=== PATIENT | male | born 2000 | race Caucasian/White ===

== ENCOUNTER 2024-09-23 20:47 | Emergency (ER) | payer OTHER, SELFPAY ==
[2024-09-23 20:52] VITALS: BP 112/81; PULSE 82; RESP 20; TEMP 37; O2SAT 97; BMI 28.1
[2024-09-23] MEDS: Lidocaine HCl 1%/Epi 1:100,000 10 ML VIAL INFILTRATI (23:16)
--- NOTE | 2024-09-23 23:28 | ED_ITS ---
HPI - General Adult General Chief complaint: Skin/Abscess/Foreign Body Stated complaint: Needs stiches, head injury sports Time Seen by Provider: 09/23/24 22:53 Source: patient, RN notes reviewed and old records reviewed Mode of arrival: ambulatory Limitations: no limitations History of Present Illness ED Provider: Essie GILL narrative: 23-year-old male presents for evaluation of a facial laceration Patient was playing rugby. Another player ran into the left side of the patient has had while he was not looking. The patient believes the other individuals no struck him in the left side of the face above his eye He has a small laceration. He reports his tetanus is up-to-date within the last 3 years He has no pain. He denies any loss of consciousness He denies any other injury Related Data Allergies Allergy/AdvReac Type Severity Reaction Status Date / Time No Known Allergies Allergy Verified 09/23/24 20:53 Review of Systems Constitutional: Constitutional: Denies body ache(s), Denies chills, Denies fever(s) and Denies headache(s) Eyes: Eyes: Denies blurry vision ENT: Denies vertigo, Denies dizziness and Denies headache(s) Cardiovascular: Cardiovascular: Denies chest pain and Denies dyspnea Respiratory: Respiratory: Denies cough and Denies dyspnea Gastrointestinal: Gastrointestinal: Denies abdominal pain Integumentary/Breasts: Skin/Breast: Denies rash and Reports wounds Neurologic: Denies vertigo, Denies dizziness and Denies headache(s) PMFSH Social History Social History Advance Directives: No Advance Directives Information Provided: No Physical Exam ED Vital Signs: Vital Signs - 24 hr 09/23/24 20:52 Temperature 98.6 F Pulse Rate 82 Respiratory Rate 20 Blood Pressure 112/81 Pulse Oximetry 97 Oxygen Delivery Method Room Air BMI result Body Mass Index 28.1 Const General: healthy appearing, comfortable, no acute distress, alert and awake Nutritional Appearance: well nourished Orientation/consciousness: patient oriented x3 HENMT Head: Yes No palpable skull fracture present Eyes Eyelids: Yes eyelids normal Conjunctivae: conjunctivae normal Sclerae: sclerae normal Corneas: corneas normal Pupils: Equal, round and reactive pupils present EOM: EOMs intact bilaterally Neck Neck: Yes full ROM Resp Effort & Inspection: normal respiratory effort, able to speak in complete sentences and not labored Cardio Rate: regular rate Rhythm: regular rhythm Skin Other: 4 cm linear laceration above the left lateral eyebrow General skin exam: elasticity normal Neuro General: patient oriented x3 Cranial nerves: Yes Equal, round and reactive pupils present and Yes Bilaterally intact EOM present Cognition (Neuro): normal cognition Extrem Other: Moving all extremities well without any obvious deformities Medications Administered Discontinued Medications Generic Name Dose Route Start Last Admin Trade Name Frenoni PRN Reason Stop Dose Admin Lidocaine/Epinephrine 10 ml 09/23/24 22:54 09/23/24 23:16 Lidocaine Hcl 1%/Epi 1:100,000 10 Ml Vial INFILTRATI 09/23/24 22:55 10 ml ONCE ONE Administration Procedures Laceration Laceration 1: Site: face Side (If applicable): left Size (cm): 3 Description: linear Depth: simple, single layer Local Anesthetic: with epi Amount of anesthesia used (mL): 2 Pre-repair: wound explored, irrigated extensively and deep structures intact Skin layer closed with: other (Prolene) Size (cm): 6-0 Number of sutures: 6 Technique: simple, interrupted Medical Decision Making Medical Decision Making MDM Narrative: For evaluation of a laceration above his left eye. There is no evidence of TBI. No other injuries. See procedure note for state Differential Diagnosis Differential Diagnoses: The differential diagnosis associated with the presentation includes Laceration Skin tear Puncture wound Abrasion Discharge Plan Discharge Clinical Impression: Facial laceration Patient Disposition: Home, Self-Care Instructions: Laceration (ED) Additional Instructions: You had 6 sutures placed. Keep the area clean and dry These can be removed in 5-7 days Return for new or worsening symptoms Print Language: Salvadorean
[2024-09-23 23:50] VITALS: BP 116/58; PULSE 80; RESP 18; TEMP 36.9; O2SAT 98
--- OUTSIDE RECORDS SUMMARY | 2024-09-30 12:13 | XMS_ITS | Summary of Care ---
Author Organization [facility] [place] [employer] Address [address] [place] [address]- Care Team Providers Care Python Django Developer Name Role Phone SARAH JENSEN MD Primary Care Physician Encounter [facility] [id number] Date(s): 03/05/21 - 03/05/21 [facility] [address] [place] [address]- Encounter Diagnosis Pain in left knee(Final) - Iliotibial band syndrome, left leg(Final) - Discharge Disposition: Home Attending Physician: FINA BURGESS MD Referring Physician: SARAH JENSEN MD Allergies, Adverse Reactions, Alerts No Known Allergies
== END 2024-09-23 23:51 | disposition home or self-care (01) ==
PROVIDERS: Emergency Provider Internal Medicine
DX: S01.81XA Laceration without foreign body of other part of head, initial encounter (principal); Y93.63 Activity, rugby; Y92.9 Unspecified place or not applicable; Y99.9 Unspecified external cause status
CPT/HCPCS: 12013; 99282; 99284; J2004